=== PATIENT | male | born 1995 | race Caucasian/White ===

== ENCOUNTER 2017-12-28 18:26 | Emergency (ER) | payer SELFPAY ==
[~2017-12-28] VITALS: Ht 170.2 cm; Wt 68.0 kg
[~2017-12-28 18:26] MED LIST: ORE25 PO
--- NOTE | 2017-12-28 18:31 | NUR ---
PT TAKEN TO BED 4.
[2017-12-28 18:33] VITALS: BP 152/117
[2017-12-28 18:37] VITALS: BP 152/117
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
[2017-12-28] MEDS ORDERED: fentaNYL 0.05 MG/ML VIAL IM ONE (18:50)
[2017-12-28] MEDS ORDERED: LIDOCAINE JELLY 2% 30 ML TUBE TP ONE (18:50)
[2017-12-28] MEDS ORDERED: LIDOCAINE 1% 500 MG/50 ML VIAL INJ SCH (18:50)
--- NOTE | 2017-12-28 19:00 | NUR ---
SANTIAGO BELCHER AT BEDSIDE FINISHED SUTURING. FENTANYL ADMINISTERED. PATIETN WAS TOLD TO WAIT 15 MIN TO EVALUATE MED EFFICIANCY. PATIENT WANTING TO LEAVE,
--- NOTE | 2017-12-28 19:24 | NUR ---
Patient does not wish to proceed with medical care recommended by SANTIAGO BELCHER. Patient given information related to possible complications, up to and including , which could occur as a result of leaving hospital at this time. Patient verbalizes understanding of risks involved leaving against medical advice. Patient has signed AMA form.
== END 2017-12-28 19:24 | disposition left against medical advice (07) ==
LOC: MED 18:26
DX: S03.2XXA Dislocation of tooth, initial encounter (principal); E11.9 Type 2 diabetes mellitus without complications; I10 Essential (primary) hypertension; W18.39XA Other fall on same level, initial encounter; Y93.89 Activity, other specified; Y92.89 Other specified places as the place of occurrence of the external cause; Y99.8 Other external cause status
CPT/HCPCS: 64400; 96372; 99284; J3010

== ENCOUNTER 2021-01-27 07:57 | Emergency (ER) | payer MEDICAID ==
[~2021-01-27] VITALS: Ht 170.2 cm; Wt 78.5 kg
[~2021-01-27 07:57] MED LIST changes: +HYDR-4004 PO; -ORE25 PO
[2021-01-27 08:06] VITALS: BP 138/94
--- NOTE | 2021-01-27 08:11 | NUR ---
PT AMBULATED TO BED 6
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
--- NOTE | 2021-01-27 08:18 | NUR ---
DR ROMO AT BEDSIDE EVALUATING PT
[2021-01-27] MEDS ORDERED: BACITRACIN OINT 500 UNITS/GM PKT TP ONE (08:25)
[2021-01-27] MEDS ORDERED: IBUPROFEN 600 MG TAB PO ONE (08:25)
--- NOTE | 2021-01-27 08:32 | NUR ---
cardio tech at bedside.
[2021-01-27] MEDS ORDERED: CEPH-588 PO (08:43)
[2021-01-27] MEDS ORDERED: NAPR-54 PO (08:43)
--- NOTE | 2021-01-27 09:05 | NUR ---
APPLIED BACITRACIN TO PTS WOUNDS AND DRESSED WITH NON-ADHERENT GAUZE PADS X4. PT PLACED IN LEFT KNEE ORTHO IMMOBILIZER. CMS WNL BEFORE AND AFTER. PT ALSO GIVEN CRUTCHES. CRUTCHES ADJUSTED TO PTS SIZE AND HEIGHT, PT STATES THAT THEY ALREADY KNOW HOW TO USE THEM. PT SHOWED PROPER DEMENSTRATION OF CRUTCHES. PT HAD NO FURTHER QUESTIONS AND RN AND PRAVEEND NOTIFIED.
[2021-01-27 09:07] VITALS: BP 138/94
--- NOTE | 2021-01-27 09:09 | NUR ---
Patient discharged with v/s stable. Written and verbal after care instructions ABOUT ABRASION AND KNEE SPRAIN given and explained. Patient alert, oriented and verbalized understanding of instructions. Ambulatory with steady gait. All questions addressed prior to discharge. ID band removed. Patient advised to follow up with PMD. Rx of KEFLEX AND NAPROXEN given. Patient educated on indication of medication including possible reaction and side effects. Opportunity to ask questions provided and answered.
== END 2021-01-27 09:09 | disposition home or self-care (01) ==
LOC: MED 07:57
DX: S83.92XA Sprain of unspecified site of left knee, initial encounter (principal); S70.312A Abrasion, left thigh, initial encounter; E11.9 Type 2 diabetes mellitus without complications; I10 Essential (primary) hypertension; Z79.899 Other long term (current) drug therapy; W19.XXXA Unspecified fall, initial encounter; Y93.89 Activity, other specified; Y92.89 Other specified places as the place of occurrence of the external cause; Y99.8 Other external cause status
CPT/HCPCS: 29505; 73562; 99283

== ENCOUNTER 2021-01-30 08:33 | Emergency (ER) | payer MEDICAID ==
[~2021-01-30] VITALS: Ht 170.2 cm; Wt 76.2 kg
[~2021-01-30 08:33] MED LIST changes: +CEPH-588 PO; +NAPR-54 PO
[2021-01-30 08:37] VITALS: BP 151/95
--- NOTE | 2021-01-30 08:41 | NUR ---
Patient ambulated to bed 7. RN evaluating the patient at bedside.
[2021-01-30 08:45] VITALS: BP 151/95
--- NOTE | 2021-01-30 08:45 | NUR ---
25YO M BIB SELF FOR MEDICAL CLEARANCE TO GO BACK TO WORK. SEEN HERE FOR LEFT KNEE SPRAIN ON 01/27/21. DENIES PAIN AT THIS TIME. DENIES NUMBNESS/WEAKNESS TO AREA. IN ED, VSS. PT AMBULATORY WITH LEFT LEG WITH BRACE. ERMD MADE AWARE OF PT STATUS. PMH: HTN NKA
--- NOTE | 2021-01-30 09:02 | NUR ---
Dr. Paige is evaluating the patient at bedside.
--- NOTE | 2021-01-30 09:19 | NUR ---
Patient discharged with v/s stable. Written and verbal after care instructions given and explained. Patient verbalized understanding. Ambulatory with steady gait. All questions addressed prior to discharge. Advised to follow up with PMD.
== END 2021-01-30 09:19 | disposition home or self-care (01) ==
LOC: MED 08:33
DX: S80.912D Unspecified superficial injury of left knee, subsequent encounter (principal); R03.0 Elevated blood-pressure reading, without diagnosis of hypertension; F17.210 Nicotine dependence, cigarettes, uncomplicated; I10 Essential (primary) hypertension; Z79.899 Other long term (current) drug therapy; Z20.822 Contact with and (suspected) exposure to COVID-19; Z71.6 Tobacco abuse counseling; X58.XXXD Exposure to other specified factors, subsequent encounter
CPT/HCPCS: 99281

== ENCOUNTER 2022-01-09 10:06 | Emergency (ER) | payer SELFPAY ==
[~2022-01-09] VITALS: Ht 170.2 cm; Wt 76.0 kg
[2022-01-09 10:08] VITALS: BP 105/68
--- NOTE | 2022-01-09 10:17 | NUR ---
26/M PRESENTS TO ED WITH C/O LEFT UPPER LEG AND THIGH PAIN X1 MONTH. PATIENT DENIES RECENT INJURY OR TRAUMA, STATES PAIN WORSENS IN THE EVENING WHEN LYING DOWN OR STAND FOR LONG PERIODS OF TIME. PATIENT REPORTS HE HAS BEEN TAKING TYLENOL WITH NO RELIEF. DENIES NUMBNESS OR TINGLING.
--- NOTE | 2022-01-09 11:42 | NUR ---
XRAY AT BEDSIDE
[2022-01-09] MEDS ORDERED: ACET-10509 PO (11:43)
[2022-01-09] MEDS ORDERED: NAPR-54 PO (11:47)
[2022-01-09 12:00] VITALS: BP 105/68
--- NOTE | 2022-01-09 12:00 | NUR ---
Patient discharged with v/s stable. Written and verbal after care instructions ABOUT CONTUSION given and explained. Patient alert, oriented and verbalized understanding of instructions. Ambulatory with steady gait. All questions addressed prior to discharge. ID band removed. Patient advised to follow up with PMD. Rx of NAPROSYN AND TYLENOL EXTRA STRENGTH given. Patient educated on indication of medication including possible reaction and side effects. Opportunity to ask questions provided and answered.
== END 2022-01-09 12:00 | disposition home or self-care (01) ==
LOC: MED 10:06
DX: M79.605 Pain in left leg (principal); I10 Essential (primary) hypertension; Z98.890 Other specified postprocedural states; Z79.899 Other long term (current) drug therapy
CPT/HCPCS: 99283

== ENCOUNTER 2022-08-24 07:20 | Emergency (ER) | payer SELFPAY ==
[~2022-08-24] VITALS: Ht 167.6 cm; Wt 73.5 kg
[~2022-08-24 07:20] MED LIST changes: +ACET-10509 PO
[2022-08-24 07:24] VITALS: BP 139/91
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
--- NOTE | 2022-08-24 07:39 | NUR ---
PT TAKEN TO XRAY VIA W/C.
--- NOTE | 2022-08-24 07:47 | NUR ---
PT BROGUHT BACK FROM XRAY VIA W/C.
[2022-08-24] MEDS ORDERED: LIDOCAINE 5% 1 EA PATCH TP ONE (08:00)
[2022-08-24] MEDS ORDERED: KETOROLAC 15 MG/ML VIAL IM ONE (08:00)
[2022-08-24] MEDS ORDERED: IBUP-2213 PO (08:15)
[2022-08-24] MEDS ORDERED: LID5T TP (08:17)
[2022-08-24 08:53] VITALS: BP 122/89
--- NOTE | 2022-08-24 08:53 | NUR ---
Patient discharged with v/s stable. Written and verbal after care instructions given and explained. Patient alert, oriented and verbalized understanding of instructions. Ambulatory with steady gait. All questions addressed prior to discharge. ID band removed. Patient advised to follow up with PMD. Rx of IBUPROFEN AND LIDOCAINE HYD given. Patient educated on indication of medication including possible reaction and side effects. Opportunity to ask questions provided and answered.
== END 2022-08-24 08:53 | disposition home or self-care (01) ==
LOC: MED 07:20
DX: S20.20XA Contusion of thorax, unspecified, initial encounter (principal); I10 Essential (primary) hypertension; Z79.899 Other long term (current) drug therapy; W19.XXXA Unspecified fall, initial encounter; Y93.89 Activity, other specified; Y92.89 Other specified places as the place of occurrence of the external cause; Y99.8 Other external cause status
CPT/HCPCS: 71100; 96372; 99283; J1885

== ENCOUNTER 2023-09-18 07:50 | Emergency (ER) | payer SELFPAY ==
[~2023-09-18] VITALS: Ht 170.2 cm; Wt 68.0 kg
[~2023-09-18 07:50] MED LIST changes: +IBUP-2213 PO; +LID5T TP
[2023-09-18 07:54] VITALS: BP 150/99; PULSE 92; RESP 17; TEMP 97.7; O2SAT 100
[2023-09-18] MEDS ORDERED: IBUPROFEN 600 MG TAB PO ONE (08:25)
[2023-09-18] MEDS ORDERED: IBUP-2213 PO (09:10)
[2023-09-18 09:32] VITALS: BP 150/99; PULSE 92; RESP 17; TEMP 97.7; O2SAT 100
== END 2023-09-18 09:32 | disposition home or self-care (01) ==
LOC: MED 07:50
DX: S20.211A Contusion of right front wall of thorax, initial encounter (principal); I10 Essential (primary) hypertension; Z79.899 Other long term (current) drug therapy; W18.30XA Fall on same level, unspecified, initial encounter; Y93.89 Activity, other specified; Y92.89 Other specified places as the place of occurrence of the external cause; Y99.8 Other external cause status
CPT/HCPCS: 71101; 99283